=== PATIENT | female | born 1980 | race Caucasian/White ===

== ENCOUNTER 2019-11-28 11:28 | Outpatient (CLI) | payer OTHER, SELFPAY ==
--- NOTE | 2019-11-28 11:40 | XRR_ITS ---
PROCEDURE INFORMATION: Exam: XR Chest, 2 Views Exam date and time: 11/28/2019 12:05 PM Age: 39 years old Clinical indication: Condition or disease; Other: Cough/atypical chest pain; Patient HX: Treated for costochondritis 2 weeks ago still has chest pain TECHNIQUE: Imaging protocol: XR of the chest Views: Frontal and lateral views. COMPARISON: No relevant prior studies available. FINDINGS: Lungs: The lungs are clear bilaterally. The pulmonary vasculature is normal. Pleural space: No pleural effusion. No pneumothorax. Heart/Mediastinum: The heart is normal in size and contour. Bones/joints: No acute chest wall abnormality identified. Other findings: The gallbladder is likely surgically absent, with metallic clips overlying the gallbladder fossa (lateral image). Prominent LEFT epiphrenic adipose. XR/XR chest 2V* [id number] IMPRESSION: 1. No acute cardiopulmonary abnormality identified. 2. Prior cholecystectomy.
== END 2019-11-28 11:29 | disposition home or self-care (01) ==
LOC: RAD 11:34
PROVIDERS: Family Provider Family Medicine; PCP Nurse Practitioner Family; Visit Provider Nurse Practitioner Family
DX: R05 Cough (principal); R07.89 Other chest pain; Z90.49 Acquired absence of other specified parts of digestive tract
CPT/HCPCS: 71046

== ENCOUNTER → 2020-05-05 08:35 | Outpatient (BNVA) | payer OTHER, SELFPAY | PROVIDERS: Family Provider Family Medicine; PCP Nurse Practitioner Family; Visit Provider Specialist | DX: Z98.890 Other specified postprocedural states (principal) | CPT/HCPCS: 73610 ==

== ENCOUNTER 2020-05-05 13:39 | Outpatient (CLI) | payer OTHER, SELFPAY | END 2020-05-05 13:40 | disposition home or self-care (01) | LOC: SPT 13:40 | PROVIDERS: Family Provider Family Medicine; PCP Nurse Practitioner Family; Visit Provider Specialist | DX: Z46.89 Encounter for fitting and adjustment of other specified devices (principal); Z98.890 Other specified postprocedural states; Z87.81 Personal history of (healed) traumatic fracture; S82.851D Displaced trimalleolar fracture of right lower leg, subsequent encounter for closed fracture with routine healing; X58.XXXD Exposure to other specified factors, subsequent encounter | CPT/HCPCS: 97760; L4361 ==

== ENCOUNTER 2022-05-12 06:30 | Observation (INO) | payer OTHER, SELFPAY ==
[2022-05-12] VITALS (13 sets, daily range): BP systolic 103–129; BP diastolic 62–93; PULSE 56–77; RESP 16–20; TEMP 36.7–36.8; O2SAT 94–100; BMI 40.8
--- NOTE | 2022-05-12 06:54 | W.ED.SKABFB ---
HPI - Skin/Abscess/Foreign Bdy General: Chief complaint: Skin/Abscess/Foreign Body Stated complaint: Spider bite on neck Time Seen by Provider: 05/12/22 06:35 Source: patient Mode of arrival: ambulatory Limitations: no limitations History of Present Illness: 41-year-old female presents to the emergency room with redness and erythema on her anterior neck. She believes she was bit by a brown recluse several days ago she initially went to urgent care started on some Bactrim and seem to be getting worse so she to follow-up with her primary care doctor seen Dr. River and was started on Cipro and clindamycin. Despite these antibiotics the redness erythema seems to have increased the central violaceous area which appears to almost be necrotic formation has increased significantly in size as well. Showed me several pictures from her phone of the progression. It is significantly progressed since it was initially noted. She not been running a fever she has been taking antibiotics regularly no difficulty speaking or swallowing. She has noticed some neck aching and discomfort with movement. MD complaint: insect bite/sting Onset (ago): day(s) Tetanus up to date: yes Location: neck Severity: moderate Quality: aching Pain Consistency: constant Relieving factors: none Exacerbating factors: none Context: other (Likely insect bite, brown recluse) Associated symptoms: Deny chills, fever(s), nausea or vomiting Treatments prior to arrival: none Review of Systems Const: Denies: fever(s), chills, body aches, change in appetite, fatigue or malaise ENMT: Denies: throat pain, ear or mastoid pain, nasal discharge or nasal congestion Card: Denies: chest pain, edema, dyspnea on exertion or orthopnea Resp: Denies: dyspnea, productive cough or non-productive cough GI: Denies: abdominal pain, nausea, vomiting, hematemesis, coffee ground emesis, diarrhea, constipation, bloating, hematochezia or melena : Denies: flank pain, difficulty voiding, dysuria, urinary frequency or urinary urgency Skin/Breast: Denies: rash or pruritus [facility] ED PFSH: Medical History (Updated 05/12/22 @ 10:29 by Cisco Ortiz DO) Ankle syndesmosis disruption Trimalleolar fracture of right ankle Surgical History History of open reduction and internal fixation (ORIF) procedure Hx of section Hx of cholecystectomy Status post open reduction and internal fixation (ORIF) of syndesmosis Family History Denies family history of Diabetes CAD (coronary artery disease) Hypertension Social History Smoking and tobacco status: never smoked Alcohol intake: current Alcohol intake frequency: holidays/special occasions only Physical Exam Const: COMMON NORMALS: no acute distress GENERAL APPEARANCE: cooperative and comfortable ORIENTATION/CONSCIOUSNESS: Yes awake, Yes oriented to person, Yes oriented to place and Yes oriented to time HENMT: COMMON NORMALS: normocephalic, atraumatic, hearing grossly normal bilaterally, moist oral mucous membranes and oropharynx normal HEAD & SCALP: normocephalic and atraumatic Neck/C-Spine: OTHER: Anterior neck soft tissues overlying at the level of the larynx there is a centrally horizontally oriented violaceous area appears to be potentially necrotic focus it extends about an inch vertically and 4 to 5 inches horizontally. From that extending laterally superiorly and inferiorly is significant redness and erythema and is warm to the touch but there is no induration. Vague palpable cervical lymphadenopathy Resp: COMMON NORMALS: normal respiratory effort, No retractions, No use of accessory muscles and clear to auscultation bilaterally AUSCULTATION: clear to auscultation bilaterally Cardio: COMMON NORMALS: regular rate, regular rhythm and No murmurs present (Cardio) RATE: regular rate RHYTHM: regular rhythm GI: COMMON NORMALS: Soft to palpation and No hepatosplenomegaly present AUSCULTATION: Yes normoactive bowel sounds PALPATION: Yes Soft to palpation, No Tenderness to palpation present (GI), No Guarding due to palpation present (GI) and Yes No hepatosplenomegaly present Extremity: COMMON NORMALS: normal to inspection, capillary refill normal, no clubbing, cyanosis or edema, no calf tenderness and no pedal edema Neuro: SENSORIUM/ORIENTATION: Yes oriented to person, Yes oriented to place and Yes oriented to time Skin: COMMON NORMALS: no rashes or lesions noted GENERAL SKIN EXAM: no rashes or lesions noted Course Vital Signs: Vital signs: Vital Signs Temperature 98.0 F 05/12/22 06:52 Pulse Rate 70 05/12/22 08:21 Respiratory Rate 16 05/12/22 08:21 Blood Pressure 113/62 05/12/22 08:21 Pulse Oximetry 97 05/12/22 08:21 MDM - Skin/Abscess/Foreign Bdy Medicial Decision Making CT reviewed. Fairly extensive cellulitis no abscess formation. Patient does have elevated white count with a left shift. She is essentially failing multiple outpatient antibiotic therapies at this point. On exam she had no stridor no palpable abscess none seen on the CT. I do think however she is can require more aggressive treatment before this progresses even more and becomes critical. At this point she has failed outpatient antibiotics and requires inpatient therapy. Discussed Dr. Crawford. Was started on vancomycin and clindamycin IV. We will consult ENT tomorrow with Dr. Pantoja will be on-call. Orders have been written. Medical Records I reviewed the patient's medical records. Lab Data I reviewed the patient's lab results. : 05/12/22 06:58 05/12/22 06:[address] 05/12/22 06:58 IMPRESSION: 1. Mild but diffuse cellulitis beginning at the level of the RIGHT submandibular gland and extending inferiorly and across the midline at the level of the thyroid cartilage. There is no focal collection although there is subcutaneous edema and a small amount of fluid extending over the midline of the neck. 2. Mild increase in the size and number of the RIGHT cervical chain lymph nodes but no loss of the fatty hilum. Laboratory Results WBC 10.9 10^3/uL (4.0-10.0) H 05/12/22 06:58 RBC 4.34 10^6/uL (4.1-5.3) 05/12/22 06:58 Hgb 14.1 g/dL (11.5-15.3) 05/12/22 06:58 Hct 41.8 % (37.0-47.0) 05/12/22 06:58 MCV 96.3 fl (81-99) 05/12/22 06:58 MCH 32.5 pg (28.0-34.0) 05/12/22 06:58 MCHC 33.7 g/dL (30.0-36.0) 05/12/22 06:58 RDW 14.0 % (12.1-15.1) 05/12/22 06:58 Plt Count 280 10^3/cmm (130-400) 05/12/22 06:58 MPV 9.4 fL (7.4-10.4) 05/12/22 06:58 Neut % (Auto) 75.3 % 05/12/22 06:58 Lymph % (Auto) 12.0 % 05/12/22 06:58 Mckean % (Auto) 5.7 % 05/12/22 06:58 Eos % (Auto) 6.2 % 05/12/22 06:58 Baso % (Auto) 0.3 % 05/12/22 06:58 Neut # (Auto) 8.20 10^3/uL (1.8-7.7) H 05/12/22 06:58 Lymph # (Auto) 1.3 10^3/uL (0.8-4.8) 05/12/22 06:58 Mckean # (Auto) 0.6 10^3/uL (0.2-0.9) 05/12/22 06:58 Eos # (Auto) 0.7 10^3/uL (0.0-0.8) 05/12/22 06:58 Baso # (Auto) 0.0 10^3/uL (0.0-0.1) 05/12/22 06:58 Nucleated RBC % (auto) 0 % 05/12/22 06:58 Nucleated RBCs # 0.0 /100WBC 05/12/22 06:58 Sodium 135 mmol/L (136-145) L 05/12/22 06:58 Potassium 4.3 mmol/L (3.5-5.1) 05/12/22 06:58 Chloride 103 mmol/L (98-107) 05/12/22 06:58 Carbon Dioxide 22 mmol/L (22-29) 05/12/22 06:58 Anion Gap 14.3 (5-19) 05/12/22 06:58 BUN 15 mg/dL (6-20) 05/12/22 06:58 Creatinine 0.8 mg/dL (0.5-0.9) 05/12/22 06:58 GFR Calculation 78.3 mL/min (90-130) L 05/12/22 06:58 Glucose 114 mg/dL (65-115) 05/12/22 06:58 Calculated Osmolality 282 mOsm/kg (285-295) L 05/12/22 06:58 Calcium 8.5 mg/dL (8.5-10.5) 05/12/22 06:58 Discharge Plan Discharge Patient Disposition: Placed in Observation Clinical Impression: Cellulitis Condition: Stable Prescriptions: No Action sulfamethoxazole-trimethoprim [Bactrim DS] 800-160 mg tablet 1 tab PO BID 7 Days Qty: 14 0RF mupirocin 2 % ointment 1 applic topical BID 7 Days Qty: 22 0RF clindamycin HCl 300 mg capsule 300 mg PO Q6H Qty: 28 0RF ciprofloxacin HCl 500 mg tablet 500 mg PO Q12H Qty: 14 0RF Referrals: Abdulkadir Mayer NP [Primary Care Provider] - Coding Level of Care Code ED [facility] Activities Coordinator for Kari Rowell
--- NOTE | 2022-05-12 06:58 | CT_ITS ---
WS: [id number] CT NECK WITH CONTRAST HISTORY: abscess/cellulitis TECHNIQUE: Contiguous 5 mm axial images are performed through the neck with intravenous contrast. Sag ittal and coronal reformats are also submitted. All CT scans at [facility] use at least one o f these dose optimization techniques: automated exposure control; mA and/or kV adjustment per patient size (includes targeted exams where dose is matched to clinical indication); or iterative reconstruc tion. CONTRAST: CONTRAST: Omnipaque 350; 80 mL IV. DLP: 469.66 mGy.cm COMPARISON: None available. No mass or soft tissue abnormality within the nasopharynx, oropharynx or hypopharynx. Torus tubarius and fossa of Rosenmuller and parapharyngeal fat are normal. Small cervical chain lymph nodes are identified. Slightly greater size and number of lymph nodes faviola g the RIGHT cervical chain with the largest at level 2 measuring 8.5 mm in diameter. There is a small amount of subcutaneous edema beginning around the level of the RIGHT submandibular g land and extending posteriorly along the sternocleidomastoid muscle and extends across the midline at the level of the thyroid cartilage. There is no focal collection. No mass in the submandibular gland or the parotid glands. No stones within the salivary ducts. Subcentimeter nodules in the thyroid. No osseous abnormalities. Visualized portions of the skull base demonstrate no abnormalities. Orbits and globes are within norm al limits. No soft tissue masses. Visualized paranasal sinuses and mastoid air cells are normal. Lung apices are clear. CT/CT neck w con* [id number] IMPRESSION: 1. Mild but diffuse cellulitis beginning at the level of the RIGHT submandibul ar gland and extending inferiorly and across the midline at the level of the th yroid cartilage. There is no focal collection although there is subcutaneous ed murtaza and a small amount of fluid extending over the midline of the neck. 2. Mild increase in the size and number of the RIGHT cervical chain lymph node s but no loss of the fatty hilum.
[2022-05-12] MEDS: promethazine 25 mg/mL SDV 1 mL IM (07:09)
[2022-05-12 07:10] LABS: Basophils % 0.3 %; Eosinophils # 0.7 10^3/uL (0.0-0.8); Eosinophils % 6.2 %; Hematocrit 41.8 % (37.0-47.0); Hemoglobin 14.1 g/dL (11.5-15.3); Lymphocytes # 1.3 10^3/uL (0.8-4.8); Mean Corpuscular HGB Conc 33.7 g/dL (30.0-36.0); Mean Corpuscular Hemoglobin 32.5 pg (28.0-34.0); Mean Corpuscular Volume 96.3 fl (81-99); Mean Platelet Volume 9.4 fL (7.4-10.4); Monocytes # 0.6 10^3/uL (0.2-0.9); Monocytes % 5.7 %; Neutrophils % 75.3 %; Nucleated Red Blood Cells % 0 %; Platelet Count 280 10^3/cmm (130-400); Red Blood Count 4.34 10^6/uL (4.1-5.3); White Blood Count 10.9 10^3/uL (4.0-10.0)
[2022-05-12] MEDS: morphine 4 mg/mL SDV 1 mL IVP ×5 (07:18→23:27)
[2022-05-12 07:45] LABS: Anion Gap 14.3 (5-19); Blood Urea Nitrogen 15 mg/dL (6-20); Calcium 8.5 mg/dL (8.5-10.5); Carbon Dioxide 22 mmol/L (22-29); Chloride 103 mmol/L (98-107); Glomerular Filtration Rate 78.3 mL/min (90-130); Glucose 114 mg/dL (65-115); Osmolality Calculated 282 mOsm/kg (285-295); Potassium 4.3 mmol/L (3.5-5.1); Sodium 135 mmol/L (136-145)
[2022-05-12] MEDS: vancomycin 1,000 MG in sodium chloride 0.9% 250 ML 250 MG IV (09:36)
--- NOTE | 2022-05-12 10:00 | P.HP_ITS ---
Providers/Chief Complaint Primary Care Provider: Abdulkadir Mayer NP Chief Complaint: Spider bite on neck History of Present Illness Nona Munoz is a 41 year old female noticed redness of her skin on Tuesday when she woke up, she attributed her symptoms to a spider bite, she was reluctant to come to the ER, went to urgent care and received antibiotics, however swelling and redness was not improving her PCP started her on 3 antibiotics Bactrim ciprofloxacin and clindamycin. She has not noticed any fever at home, no chest pain or shortness of breath. She has been noticing loose stools with her antibiotics. No active chest pain. She has been noticing some swelling and pressure-like sensation around her neck specially around right ear back of her neck and behind her sternum. Today she decided to come to the ER for further evaluation because of worsening of edema and swelling. She failed outpatient therapy White count is 10.9 She is not septic She is not diabetic I have started her on vancomycin and for toxin suppression clindamycin Procalcitonin pending CT neck CT did not show any abscess anterior cervical lymphadenopathy Review of Systems Const: Reports: body aches, fatigue and malaise; Denies: chills Eyes: Denies: change in vision ENMT: Denies: throat pain Card: Denies: chest pain Resp: Denies: dyspnea GI: Reports: GI cramping : Denies: flank pain Musc: Denies: neck pain Skin/Breast: Reports: rash, pruritus, erythema, skin pain and skin tenderness Neuro: Denies: headache(s) Psych: Denies: anxiety Endo: Denies: polyuria Jignesh/Lymph: Denies: easy bruising All/Imm: Denies: urticaria Medications/Allergies Home Medications Medication Instructions Recorded Confirmed Last Taken Type sulfamethoxazole 800 1 tab PO BID 7 Days #14 tab 05/08/22 05/12/22 05/11/22 20:30 Rx mg-trimethoprim 160 mg tablet (Bactrim DS) ciprofloxacin HCl 500 mg tablet 500 mg PO Q12H #14 tab 05/10/22 05/12/22 05/11/22 20:30 Rx clindamycin HCl 300 mg capsule 300 mg PO Q6H #28 cap 05/10/22 05/12/22 05/12/22 01:00 Rx acetaminophen 500 mg tablet 1,000 mg PO Q4H PRN 05/12/22 05/12/22 Unknown History escitalopram oxalate 5 mg tablet 5 mg PO DAILY PRN 05/12/22 05/12/22 Unknown History (Lexapro) ibuprofen 200 mg tablet 800 mg PO Q4H PRN 05/12/22 05/12/22 Unknown History Allergies Allergy/AdvReac Type Severity Reaction Status Date / Time No Known Allergies Allergy Verified 05/12/22 10:28 PFSH Acute PFSH: Medical History Ankle syndesmosis disruption Trimalleolar fracture of right ankle Surgical History History of open reduction and internal fixation (ORIF) procedure Hx of section Hx of cholecystectomy Status post open reduction and internal fixation (ORIF) of syndesmosis Family History Denies family history of Diabetes CAD (coronary artery disease) Hypertension Social History Smoking and tobacco status: never smoked Alcohol intake: current Alcohol intake frequency: holidays/special occasions only Vitals/I&O/Wt Last Vital Signs Temp 98.0 F 05/12/22 06:52 Pulse 70 05/12/22 08:21 Resp 16 05/12/22 08:21 BP 113/62 05/12/22 08:21 Pulse Ox 97 05/12/22 08:21 Weight last 48 hrs Weight 125.645 kg Physical Exam Narrative: Pleasant young female Erythema of her neck with central petechial rash No opening of skin noted Erythema skin is blanchable Anterior cervical lymphadenopathy Did not appreciate apical tender lymphadenopathy Distended soft abdomen S1, S2 No stridor or wheezing Saturating well on room air Data : 05/12/22 06:58 05/12/22 06:58 Micro: Microbiology 05/12/22 07:41 Blood Culture - Preliminary Blood SPECIMEN COLLECTED 05/12/22 07:41 Blood Culture - Preliminary Blood SPECIMEN COLLECTED A&P Assessment and plan (1) Cellulitis: Status: Acute Plan Nonpurulent cellulitis of her neck area No abscess formation For toxin suppression clindamycin added on top of vancomycin Failed outpatient therapy No stridor or wheezing I will give her Benadryl, steroids Regular diet DVT prophylaxis 30 mg of Lovenox Full code DuoNeb every 4 as needed Blood cultures have been taken She is not septic at the time of presentation I did retirement plan counselor patient to watch for worsening of erythema, swelling, lymphedema Will demarcate the area with skin marker, nurse notified Attestations Medical Necessity Statement*: Anticipating discharge within 48 hours she will need IV antibiotics because she failed outpatient therapy for cellulitis Time Spent in Patient Care: 40 Coding Level of Care Code Acute Computer Consultant for Kari Rowell Diagnoses Cellulitis L03.90
--- NOTE | 2022-05-12 10:39 | PC.PHAR ---
pt states she takes care of her own medications-pt states she takes lexapro 5mg qd prn states it is an old rx that she just takes prn-vidya bernsteni states never filled,armand states never filled and elidia sylmar states never filled for pt-notes are made in the pharmacy comments
[2022-05-12] MEDS: clindamycin 600 MG/50 ML PREMIX 100 MG IV ×2 (10:51→18:01)
[2022-05-12] MEDS: predniSONE 20 mg Tablet PO (12:50)
[2022-05-12] MEDS: sodium chloride 0.9% 1,000 ML 75 ML IV (12:51)
[2022-05-12] MEDS: enoxaparin 30 mg/0.3 mL Syringe SUBCUT (12:51)
[2022-05-12 12:56] LABS: Procalcitonin 0.07 ng/mL (0-0.5)
[2022-05-12] MEDS: diphenhydrAMINE 50 mg/mL SDV 1mL 12.5 MG IVP (13:01)
[2022-05-12] MEDS: bacitracin ointment 28 gm TOPICAL ×2 (14:34→20:19)
--- NOTE | 2022-05-12 19:40 | PC.NURSE ---
278-2 Admission vital signs- 103/72 blood pressure 77 pulse rate 98.3 temperature orally 94 O2 on room air 17 respirations / minute
[2022-05-13] VITALS (9 sets, daily range): BP systolic 99–146; BP diastolic 58–75; PULSE 55–88; RESP 14–20; TEMP 36.3–36.9; O2SAT 95–98
[2022-05-13] MEDS: clindamycin 600 MG/50 ML PREMIX 100 MG IV ×3 (03:17→21:35)
[2022-05-13 05:08] LABS: Basophils % 0.2 %; Eosinophils # 0.3 10^3/uL (0.0-0.8); Eosinophils % 2.8 %; Hematocrit 36.7 % (37.0-47.0); Hemoglobin 12.1 g/dL (11.5-15.3); Lymphocytes # 1.5 10^3/uL (0.8-4.8); Lymphocytes % 14.4 %; Mean Corpuscular Hemoglobin 31.7 pg (28.0-34.0); Mean Corpuscular Volume 96.1 fl (81-99); Mean Platelet Volume 9.8 fL (7.4-10.4); Monocytes # 0.7 10^3/uL (0.2-0.9); Neutrophils % 75.2 %; Nucleated Red Blood Cells % 0 %; Platelet Count 257 10^3/cmm (130-400); Red Blood Count 3.82 10^6/uL (4.1-5.3); Red Cell Distribution Width 13.8 % (12.1-15.1); White Blood Count 10.3 10^3/uL (4.0-10.0)
[2022-05-13 05:29] LABS: Anion Gap 14.3 (5-19); Blood Urea Nitrogen 12 mg/dL (6-20); Calcium 8.4 mg/dL (8.5-10.5); Carbon Dioxide 23 mmol/L (22-29); Chloride 104 mmol/L (98-107); Glomerular Filtration Rate 91.3 mL/min (90-130); Glucose 111 mg/dL (65-115); Magnesium 2.2 mg/dL (1.7-2.3); Osmolality Calculated 284 mOsm/kg (285-295); Potassium 4.3 mmol/L (3.5-5.1); Sodium 137 mmol/L (136-145)
[2022-05-13] MEDS: morphine 4 mg/mL SDV 1 mL IVP ×3 (06:08→20:52)
--- NOTE | 2022-05-13 08:36 | PM.PN ---
Subjective Subjective: Mild leukocytosis, no fever, CRP noted, procalcitonin unremarkable Sodium improved Swelling and redness has slightly improved There is a slight dimple at at the site of bite No stridor or wheezing shortness of breath Has been having 1-2 liquid bowel movement today Vitals/I&O/Wt Last Vital Signs Temp 98.5 F 05/13/22 08:00 Pulse 55 L 05/13/22 08:00 Resp 18 05/13/22 08:00 BP 109/68 05/13/22 08:00 Pulse Ox 97 05/13/22 08:00 05/12/22 05/13/22 05/13/22 22:59 06:59 14:59 Intake Total 300 / 600 1000 / 1600 Balance 300 / 600 1000 / 1600 Weight last 48 hrs Weight 125.645 kg Physical Exam Narrative: Patient was sitting comfortably in her bed Saturating well on room air Tender cervical lymphadenopathy Redness is slightly improved since yesterday Ecchymosis slightly getting better a dimple is present at the level of bite No active drainage No active stridor or wheezing No acute respite distress No lymphedema of arm Abdomen soft No signs of edema of legs Data : 05/13/22 04:37 05/13/22 04:37 Micro: Microbiology 05/12/22 07:41 Blood Culture - Preliminary Blood NEGATIVE TO DATE 05/12/22 07:41 Blood Culture - Preliminary Blood NEGATIVE TO DATE A&P Assessment and plan (1) Cellulitis: Status: Acute Plan Nonpurulent cellulitis secondary to spider bite Continue vancomycin and clindamycin Discontinue IV fluids, Will add anti-inflammatory She can have regular diet No active stridor or wheezing Tender anterior cervical lymphadenopathy And plan to discharge her home tomorrow cellulitis seems to be improving Will give her 1 dose of Benadryl, bradycardia noted Rule outs sleep apnea, will do pulse oximetry study overnight Trend CRP Continue steroids Planning to discharge home clindamycin Diarrhea: More than 3 loose stools then I will check C. difficile monitor for now She is having 1-2 bowel movements a day Attestations Medical Necessity Statement*: Discharge tomorrow Time Spent in Patient Care: 30 Coding Level of Care Code Acute [facility] Diagnoses Cellulitis L03.90
[2022-05-13] MEDS: diphenhydrAMINE 50 mg/mL SDV 1mL 12.5 MG IVP (09:57)
[2022-05-13] MEDS: ibuprofen 800 mg tablet PO ×2 (09:58→19:02)
[2022-05-13] MEDS: predniSONE 20 mg Tablet PO (09:58)
[2022-05-13] MEDS: bacitracin ointment 28 gm TOPICAL ×3 (10:00→20:56)
[2022-05-13] MEDS: enoxaparin 40 mg/0.4 mL Syringe SUBCUT (13:18)
[2022-05-13 19:28] LABS: Vancomycin Trough 9.6 ug/mL (10-15)
[2022-05-14] VITALS: BP 99/59; PULSE 56; RESP 19; TEMP 37; O2SAT 97
[2022-05-14] MEDS: ibuprofen 800 mg tablet PO (00:22)
[2022-05-14] MEDS: clindamycin 600 MG/50 ML PREMIX 100 MG IV (02:33)
[2022-05-14 02:39] VITALS: RESP 18
[2022-05-14] MEDS: morphine 4 mg/mL SDV 1 mL IVP (02:39)
[2022-05-14 04:00] VITALS: BP 99/66; PULSE 52; RESP 18; TEMP 36.8; O2SAT 96
[2022-05-14] MEDS: vancomycin 1,000 MG in sodium chloride 0.9% 250 ML 250 MG IV (04:38)
[2022-05-14 05:18] LABS: Basophils % 0.2 %; Eosinophils # 0.3 10^3/uL (0.0-0.8); Eosinophils % 2.7 %; Hematocrit 35.1 % (37.0-47.0); Hemoglobin 11.5 g/dL (11.5-15.3); Lymphocytes # 2.5 10^3/uL (0.8-4.8); Lymphocytes % 20.8 %; Mean Corpuscular HGB Conc 32.8 g/dL (30.0-36.0); Mean Corpuscular Volume 97.8 fl (81-99); Mean Platelet Volume 9.6 fL (7.4-10.4); Monocytes # 0.9 10^3/uL (0.2-0.9); Monocytes % 7.6 %; Neutrophils # 8.19 10^3/uL (1.8-7.7); Neutrophils % 68.1 %; Nucleated Red Blood Cells % 0 %; Platelet Count 240 10^3/cmm (130-400); Red Blood Count 3.59 10^6/uL (4.1-5.3); Red Cell Distribution Width 13.8 % (12.1-15.1)
[2022-05-14 05:32] LABS: Anion Gap 13.3 (5-19); Blood Urea Nitrogen 15 mg/dL (6-20); Calcium 8.3 mg/dL (8.5-10.5); Carbon Dioxide 24 mmol/L (22-29); Chloride 106 mmol/L (98-107); Glomerular Filtration Rate 91.3 mL/min (90-130); Glucose 162 mg/dL (65-115); Osmolality Calculated 292 mOsm/kg (285-295); Potassium 4.3 mmol/L (3.5-5.1); Sodium 139 mmol/L (136-145)
[2022-05-14 07:54] VITALS: BP 89/45; PULSE 59; RESP 16; TEMP 36.7; O2SAT 97
[2022-05-14 08:05] LABS: Free T4 Free Thyroxine 0.78 ng/dL (0.82-1.77)
--- NOTE | 2022-05-14 09:00 | P.DS_ITS ---
Discharge Providers Date of Admission: 05/12/22 11:37 Date of Discharge: May 14, 2022 Attending Provider at Admission: Veronica Crawford MD Attending Provider at Discharge: Veronica Crawford MD Primary Care Provider: Abdulkadir Mayer NP Diagnoses at Discharge Discharge Diagnosis (1) Cellulitis: Status: Acute Reason for Visit Reason for Visit: Spider bite on neck Hospital Course Hospital Course Jayro 41-year-old female present to the hospital for management of cellulitis after a suspected spider bite in submandibular region. She failed outpatient therapy and presented to the hospital for worsening of swelling and redness. No abscess identified on CT neck. No signs of lymphedema however she has significant anterior cervical lymphadenopathy. She remained afebrile no signs of sepsis. I have treated her with vancomycin along clindamycin which improved redness and swelling, I also gave her anti-inflammatory, topical bacitracin Benadryl and steroids. I have given her 7 more days of clindamycin and topical bacitracin. No stridor or wheezing. No signs of lymphedema no swelling of arm. She is able to swallow food without any difficulty. She has been diagnosed with hypothyroidism during this hospitalization and sleep apnea. Currently see overnight pulse ox study. I have given her referral for sleep study and started low-dose levothyroxine which needs to be titrated according to her BMI. Her optimal dose would be around 100-175 mcg. Physical Exam Narrative: Jayro young female Visceral obesity Redness around spider bite is improving, swelling is also improving tender anterior lymphadenopathy of cervical chain No signs of lymphedema No stridor or wheezing Satting well on room air No active distress Nonfocal neuro exam Discharge Data Studies Completed and Pending Completed Studies During Hospitalization Category Date Time Status CT neck w con* [id number] Stat Cat Scan 05/12/22 06:58 Completed Pending at discharge Category Date Time Status Blood Culture Stat Lab 05/12/22 07:41 Results TPO [Thyroid Peroxidase Antobodies] Routine Lab 05/14/22 08:55 Ordered Radiology Impressions Neck CT 05/12/22 06:58 IMPRESSION: 1. Mild but diffuse cellulitis beginning at the level of the RIGHT submandibular gland and extending inferiorly and across the midline at the level of the thyroid cartilage. There is no focal collection although there is subcutaneous edema and a small amount of fluid extending over the midline of the neck. 2. Mild increase in the size and number of the RIGHT cervical chain lymph nodes but no loss of the fatty hilum. Laboratory Results WBC 12.0 10^3/uL (4.0-10.0) H 05/14/22 05:10 RBC 3.59 10^6/uL (4.1-5.3) L 05/14/22 05:10 Hgb 11.5 g/dL (11.5-15.3) 05/14/22 05:10 Hct 35.1 % (37.0-47.0) L 05/14/22 05:10 MCV 97.8 fl (81-99) 05/14/22 05:10 MCH 32.0 pg (28.0-34.0) 05/14/22 05:10 MCHC 32.8 g/dL (30.0-36.0) 05/14/22 05:10 RDW 13.8 % (12.1-15.1) 05/14/22 05:10 Plt Count 240 10^3/cmm (130-400) 05/14/22 05:10 MPV 9.6 fL (7.4-10.4) 05/14/22 05:10 Neut % (Auto) 68.1 % 05/14/22 05:10 Lymph % (Auto) 20.8 % 05/14/22 05:10 [place] % (Auto) 7.6 % 05/14/22 05:10 Eos % (Auto) 2.7 % 05/14/22 05:10 Baso % (Auto) 0.2 % 05/14/22 05:10 Neut # (Auto) 8.19 10^3/uL (1.8-7.7) H 05/14/22 05:10 Lymph # (Auto) 2.5 10^3/uL (0.8-4.8) 05/14/22 05:10 [place] # (Auto) 0.9 10^3/uL (0.2-0.9) 05/14/22 05:10 Eos # (Auto) 0.3 10^3/uL (0.0-0.8) 05/14/22 05:10 Baso # (Auto) 0.0 10^3/uL (0.0-0.1) 05/14/22 05:10 Nucleated RBC % (auto) 0 % 05/14/22 05:10 Nucleated RBCs # 0.0 /100WBC 05/14/22 05:10 Sodium 139 mmol/L (136-145) 05/14/22 05:10 Potassium 4.3 mmol/L (3.5-5.1) 05/14/22 05:10 Chloride 106 mmol/L (98-107) 05/14/22 05:10 Carbon Dioxide 24 mmol/L (22-29) 05/14/22 05:10 Anion Gap 13.3 (5-19) 05/14/22 05:10 BUN 15 mg/dL (6-20) 05/14/22 05:10 Creatinine 0.7 mg/dL (0.5-0.9) 05/14/22 05:10 GFR Calculation 91.3 mL/min (90-130) 05/14/22 05:10 Glucose 162 mg/dL (65-115) H 05/14/22 05:10 Calculated Osmolality 292 mOsm/kg (285-295) 05/14/22 05:10 Calcium 8.3 mg/dL (8.5-10.5) L 05/14/22 05:10 Magnesium 2.2 mg/dL (1.7-2.3) 05/13/22 04:37 C-Reactive Protein 13.0 mg/L (0.0-4.9) H 05/13/22 09:05 Procalcitonin 0.07 ng/mL (0-0.5) 05/12/22 06:58 TSH 4.50 uIU/mL (0.27-4.20) H 05/13/22 09:05 Free T4 0.78 ng/dL (0.82-1.77) L 05/14/22 05:10 Vancomycin Trough 9.6 ug/mL (10-15) L 05/13/22 17:59 Vitals Last Vital Signs Temp 98.1 F 05/14/22 07:54 Pulse 59 L 05/14/22 07:54 Resp 16 05/14/22 07:54 BP 89/45 05/14/22 07:54 Pulse Ox 97 05/14/22 07:54 Discharge Plan Discharge Patient Disposition: Home Condition: Stable Prescriptions: New levothyroxine 25 mcg capsule 25 mcg PO DAILY Qty: 60 2RF bacitracin 500 unit/gram ointment 1 applic topical DAILY Qty: 14 1RF clindamycin HCl 300 mg capsule 300 mg PO Q6H 10 Days Qty: 40 0RF Continued Tylenol Ex Str Rapid Release 500 mg Tablet 1,000 mg PO Q4H PRN (Reason: Pain) 0RF escitalopram oxalate [Lexapro] 5 mg Tablet 5 mg PO DAILY PRN (Reason: unknown) 0RF ibuprofen 200 mg Tablet 800 mg PO Q4H PRN (Reason: Pain) Qty: 60 0RF Discontinued sulfamethoxazole-trimethoprim [Bactrim DS] 800-160 mg tablet 1 tab PO BID 7 Days Qty: 14 0RF clindamycin HCl 300 mg capsule 300 mg PO Q6H Qty: 28 0RF ciprofloxacin HCl 500 mg tablet 500 mg PO Q12H Qty: 14 0RF Discharge Orders: Discharge Order (Routine); Ordered 05/14/22 Ordered By: Veronica Crawford Other Ambulatory Orders: Sleep Study/Titration (Routine) Timeframe: 2 Days Facility: [facility] - Location: [facility] Ordered By: Veronica Crawford Referrals: Abdulkadir Mayer NP [Primary Care Provider] - 4-7 days Discharge Diet: Cardiac Discharge Activity: Increase activity as tolerated Patient Instructions: Sleep Apnea (GEN), Hypothyroidism (DC), Opioid Safety Discharge Attestations Time Spent in Discharge Care*: less than 30 min Quality Metrics Clinical Quality Measures [ No reported AMI, CVA or VTE this stay] Coding Level of Care Code Acute Chg FW DC note Diagnoses Cellulitis L03.90
[2022-05-14 09:42] VITALS: PULSE 66; RESP 17; O2SAT 97
[2022-05-18 13:03] LABS: Thyroid Peroxidase Antobodies 2 IU/mL (<9)
== END 2022-05-14 11:48 | disposition home or self-care (01) ==
LOC: ER 10:29 → MEDSURG 11:56
PROVIDERS: Admitting Provider Internal Medicine; Emergency Provider Family Medicine; PCP Nurse Practitioner Family; Visit Provider Internal Medicine
DX: L03.90 Cellulitis, unspecified (principal); E03.9 Hypothyroidism, unspecified; G47.30 Sleep apnea, unspecified; T63.301A Toxic effect of unspecified spider venom, accidental (unintentional), initial encounter
CPT/HCPCS: 36415; 70491; 80048; 80202; 83735; 84145; 84439; 84443; 85025; 86140; 86376; 87040; 96365; 96366; 96367; 96372; 96375; 96376; 99285; G0378; J1200; J1650; J2270; J2550; J3370; J3490; J7030; J7050; J7512

== ENCOUNTER → 2022-09-23 14:54 | Outpatient (BNVA) | payer OTHER, SELFPAY | PROVIDERS: PCP Family Medicine; Visit Provider Family Medicine | DX: E66.9 Obesity, unspecified (principal); E03.9 Hypothyroidism, unspecified; L98.9 Disorder of the skin and subcutaneous tissue, unspecified | CPT/HCPCS: 80053; 80061; 83036; 84439; 84443 ==

== ENCOUNTER → 2023-07-22 14:10 | Outpatient (BNVA) | payer OTHER, SELFPAY | PROVIDERS: PCP Family Medicine; Visit Provider Obstetrics & Gynecology | DX: N92.0 Excessive and frequent menstruation with regular cycle (principal) | CPT/HCPCS: 83001; 84146; 85025 ==

== ENCOUNTER → 2023-07-27 09:23 | Outpatient (BNVA) | payer OTHER, SELFPAY | PROVIDERS: PCP Family Medicine; Visit Provider Obstetrics & Gynecology | DX: N92.0 Excessive and frequent menstruation with regular cycle (principal); R93.89 Abnormal findings on diagnostic imaging of other specified body structures | CPT/HCPCS: 76830 ==